=== PATIENT | female | born 1955 | race African-American/Black ===

== ENCOUNTER 2020-10-25 07:05 | Day surgery (SDC) | payer OTHER ==
[2020-10-17 15:56] VITALS: BMI 37.2
[2020-10-25] MEDS ORDERED: LIDOCAINE HCL/PF 2% SDV 5ML VIAL ONE (07:57)
[2020-10-25] MEDS ORDERED: PROPOFOL 20 ML ONE ×3 (07:57→08:20)
[2020-10-25 09:07] VITALS: BP 121/68; PULSE 85; TEMP 98
== END 2020-10-25 09:16 | disposition home or self-care (01) ==
LOC: FASU-ENDO 07:05
PROVIDERS: ATTEND Internal Medicine Gastroenterology
PROC: 0DJD8ZZ Inspection of Lower Intestinal Tract, Via Natural or Artificial Opening Endoscopic (ICD-10-PCS; principal; 2020-10-25 08:16)
DX: Z12.11 Encounter for screening for malignant neoplasm of colon (principal)
CPT/HCPCS: G0121